=== PATIENT | male | born 1955 | race Caucasian/White ===

== ENCOUNTER 2016-09-27 13:33 | Emergency (ER) | payer BC ==
[~2016-09-27] VITALS: Ht 175.3 cm; Wt 84.0 kg
[2016-09-27 18:17] VITALS: BP 127/80
== END 2016-09-27 18:17 | disposition home or self-care (01) ==
LOC: EME 13:33 → RME 13:33
DX: M79.89 Other specified soft tissue disorders (principal); Z98.890 Other specified postprocedural states
CPT/HCPCS: 73630; 93971